=== PATIENT | female | born 1985 | race Caucasian/White ===

== ENCOUNTER → 2019-10-29 | Outpatient (CLI) | payer BC ==
[~2019-10-29] MED LIST: IBU600 MG PO; PERCOCET 325 MG1 TA2 PO; PRENATAL; PROAIR HFA0.09 MG/AC IH; ZYRTEC 10MG10 MG PO
== END ==
LOC: DIA.ED 11:00
DX: O24.419 Gestational diabetes mellitus in pregnancy, unspecified control (principal)
CPT/HCPCS: G0108

== ENCOUNTER → 2019-11-04 | Outpatient (CLI) | payer BC | LOC: DIA.ED 07:50 | DX: O24.419 Gestational diabetes mellitus in pregnancy, unspecified control (principal) | CPT/HCPCS: G0108 ==

== ENCOUNTER → 2019-12-02 | Outpatient (CLI) | payer BC | LOC: DIA.ED 11:00 | DX: O24.419 Gestational diabetes mellitus in pregnancy, unspecified control (principal) | CPT/HCPCS: G0108 ==

== ENCOUNTER 2019-12-18 07:25 | Inpatient (IN) | payer BC, MEDICAID ==
[2019-12-18] VITALS (58 sets, daily range): BP systolic 95–145; BP diastolic 48–90; PULSE 62–118; TEMP 97.7–98.6
[~2019-12-18] VITALS: Ht 149.9 cm; Wt 70.5 kg
--- NOTE | 2019-12-18 07:30 | NUR ---
PATIENT HERE TO LR 2 FOR INDUCTION. PATIENT CHANGED INTO GOWN, ON EFM, VITALS OBTAINED. PATIENT HERE WITH JOVON. PATIENT DENIES CONTRACTIONS, LEAKING OF FLUID OR BLEEDING. IV STARTED, ADMISSION COMPLETE, CONSENTS SIGNED. PATIENT HAS NOT HAD LMP SINCE 2018. SVE /-3.
[2019-12-18] MEDS ORDERED: ZYRTEC 10MG10 MG PO (07:50)
[2019-12-18] MEDS ORDERED: PROAIR HFA0.09 MG/AC IH (07:50)
[2019-12-18] MEDS ORDERED: PRENATAL (07:50)
--- NOTE | 2019-12-18 08:00 | NUR ---
PATIENTS FAST BLOOD GLUCOSE THIS MORNING AROUND 0600 WAS 106
[2019-12-18 08:52] LABS: BASO % 0.3 % (0.0-2.0); EOS # 0.1 (0.0-0.7); EOS % 1.6 % (0-4.0); GRAN # 4.4 (1.4-6.5); GRAN % 62.4 % (42.2-75.2); HEMATOCRIT 41.1 % (37.0-47.0); HEMOGLOBIN 13.7 g/dl (12.5-16.0); LYMPH # 1.6 (1.2-3.4); LYMPH % 23.2 % (20.0-51.0); MEAN CELL VOLUME 82 fl (80.0-100.0); MEAN CORPUSCULAR HEMOGLOBIN 28 pg (27.0-31.0); MEAN CORPUSCULAR HGB CONC 33 g/dl (33.0-37.0); MEAN PLATELET VOLUME 11.8 fl (7.4-10.4); MONO # 0.8 (0.1-0.6); MONO % 11.9 % (1.7-9.3); PLATELET COUNT 164 K/mm3 (130-400); RED BLOOD COUNT 4.99 M/mm3 (4.10-5.30); REDCELL DISTRIBUTION WIDTH-CV 13.7 % (11.5-14.5)
--- NOTE | 2019-12-18 14:50 | NUR ---
IUPC PLACED BY DR BROOKS
--- NOTE | 2019-12-18 17:37 | NUR ---
[id number]- LATE DELELERATIONS. PATIENT WL, WR, LL, RL. WITH CONTRACTIONS.PATIENT SF THEN WL, THEN WR. IV BOLUS GIVEN. 164 PIT [address] BROOKS NOTIFIED
[2019-12-19 02:36] VITALS: BP 106/62; PULSE 82; TEMP 98.2
[2019-12-19 05:23] VITALS: BP 112/68; PULSE 72; TEMP 98.4
[2019-12-19 07:22] LABS: HEMOGLOBIN 10.9 g/dl (12.5-16.0)
[2019-12-19 08:45] VITALS: BP 107/67; PULSE 93; TEMP 98.4
--- NOTE | 2019-12-19 12:00 | NUR ---
Ambulates to the bathroom and back. Request pain medication. Ibuprofen 600 mg, percocet 5/325 mg two given per request and as ordered.
[2019-12-19 16:15] VITALS: BP 99/53; PULSE 79; TEMP 98
[2019-12-19 20:00] VITALS: BP 118/74; PULSE 97; TEMP 98
[2019-12-20 07:30] VITALS: BP 122/69; PULSE 80; TEMP 98
[2019-12-20] MEDS ORDERED: PERCOCET 325 MG1 TA2 PO (09:57)
[2019-12-20] MEDS ORDERED: IBU600 MG PO (09:57)
== END 2019-12-20 12:20 | disposition home or self-care (01) | DRG 788 ==
LOC: LDR 07:25 → OB 12:52
PROVIDERS: ADMIT Obstetrics & Gynecology
PROC: 10D00Z1 Extraction of Products of Conception, Low, Open Approach (ICD-10-PCS; principal; 2019-12-18)
DX: O24.420 Gestational diabetes mellitus in childbirth, diet controlled (principal); O69.81X0 Labor and delivery complicated by cord around neck, without compression, not applicable or unspecified; Z3A.39 39 weeks gestation of pregnancy; Z37.0 Single live birth; O76 Abnormality in fetal heart rate and rhythm complicating labor and delivery
CPT/HCPCS: J0690; J1885; J2370; J2400; J2405; J2590; J2795; J3010; J7120

== ENCOUNTER → 2021-02-22 | Outpatient (CLI) | payer BC, MEDICAID ==
[~2021-02-22] MED LIST changes: +IBU800 M1 PO
== END ==
LOC: ZCOL.LAB 06:48
DX: Z20.822 Contact with and (suspected) exposure to COVID-19 (principal)

== ENCOUNTER 2021-02-27 05:59 | Inpatient (IN) | payer BC, MEDICAID ==
[~2021-02-27] VITALS: Ht 149.9 cm; Wt 70.9 kg
[2021-02-27] VITALS (17 sets, daily range): BP systolic 104–145; BP diastolic 45–86; PULSE 50–97; TEMP 98–98.3
[~2021-02-27 05:59] MED LIST changes: -IBU800 M1 PO
--- NOTE | 2021-02-27 06:10 | NUR ---
Patient ambulates to 209, changed into gown. 0620: This RN assumes care and FHR/TOCO placed and explained. Plan of care discussed and questions answered. Patient here for repeat scheduled csection. 0640: IV placed in left upper arm, blood obtained, LR infusing. Consents signed/assessment completed. Blood sugar obtained-121
[2021-02-27 07:03] LABS: BASO % 0.3 % (0.0-2.0); EOS # 0.1 (0.0-0.7); EOS % 0.7 % (0-4.0); GRAN # 4.7 (1.4-6.5); GRAN % 65.4 % (42.2-75.2); HEMATOCRIT 39.3 % (37.0-47.0); HEMOGLOBIN 13.1 g/dl (12.5-16.0); LYMPH # 1.7 (1.2-3.4); LYMPH % 23.2 % (20.0-51.0); MEAN CELL VOLUME 80 fl (80.0-100.0); MEAN CORPUSCULAR HEMOGLOBIN 27 pg (27.0-31.0); MEAN CORPUSCULAR HGB CONC 33 g/dl (33.0-37.0); MONO # 0.7 (0.1-0.6); MONO % 9.6 % (1.7-9.3); PLATELET COUNT 153 K/mm3 (130-400); RED BLOOD COUNT 4.92 M/mm3 (4.10-5.30); REDCELL DISTRIBUTION WIDTH-CV 13.6 % (11.5-14.5)
--- NOTE | 2021-02-27 14:40 | NUR ---
Patient ambulatory to LR3, changed into gown, FHR/TOCO montiors placed and explained. Patient states she has been having contractions since about 0300. Denies any leaking of fluid/vaginal bleeding/decreased movement. Plan of care discussed. E 2-3/-2 Assessment completed and questions answered.
--- NOTE | 2021-02-27 21:30 | NUR ---
Pt able to lift and hold each leg off of bed for 5 seconds and is ready to get out of bed. SCDs off. Pt positioned to sitting on edge of bed. Denies feeling dizzy or light headed. Pt able to ambulate to bathroom with stand by assistance. Rashid catheter removed, pt tolerated well. Pericare explained and provided. Clean gown on. Mesh panties and peripad applied. Pt educated on need of 3 measured voids.
[2021-02-28 00:15] VITALS: BP 137/62; PULSE 56; TEMP 97.6
[2021-02-28 04:25] VITALS: BP 117/61; PULSE 62; TEMP 98.1
--- NOTE | 2021-02-28 06:45 | NUR ---
Rests in bed, alert. Denies any pain or discomfort at this time.
[2021-02-28 07:00] VITALS: BP 110/63; PULSE 58; TEMP 97.8
[2021-02-28 07:14] LABS: HEMOGLOBIN 11.9 g/dl (12.5-16.0)
[2021-02-28 07:15] LABS: HEMATOCRIT 36.5 % (37.0-47.0)
[2021-02-28] MEDS ORDERED: IBU800 M1 PO (08:08)
[2021-02-28] MEDS ORDERED: PERCOCET 325 MG1 TA2 PO (08:09)
--- NOTE | 2021-02-28 09:20 | NUR ---
Percocet 5/325 mg one given per request and as ordered.
--- NOTE | 2021-02-28 10:30 | NUR ---
Initial visit; Patient thanked [employer] Attendant for looking in on her and offering prayer for her daughter who has been transferred to [facility]. [employer] Attendant prayed that infant continue to make progress and parents be given strength.
[2021-02-28 17:00] VITALS: BP 121/73; PULSE 64; TEMP 97.8
--- NOTE | 2021-02-28 17:09 | NUR ---
Rests in bed, alert. Ibuprofen 800 mg given as ordered.
[2021-02-28 19:30] VITALS: BP 142/73; PULSE 71; TEMP 97.5
[2021-03-01 07:40] VITALS: BP 120/86; PULSE 78; TEMP 97.9
== END 2021-03-01 09:30 | disposition home or self-care (01) | DRG 787 ==
LOC: OB 05:59
PROVIDERS: ADMIT Obstetrics & Gynecology
PROC: 10D00Z1 Extraction of Products of Conception, Low, Open Approach (ICD-10-PCS; principal; 2021-02-27)
DX: O34.211 Maternal care for low transverse scar from previous cesarean delivery (principal); O98.82 Other maternal infectious and parasitic diseases complicating childbirth; O24.420 Gestational diabetes mellitus in childbirth, diet controlled; O99.52 Diseases of the respiratory system complicating childbirth; J45.909 Unspecified asthma, uncomplicated; O69.81X0 Labor and delivery complicated by cord around neck, without compression, not applicable or unspecified; B37.3 Candidiasis of vulva and vagina; Z3A.39 39 weeks gestation of pregnancy; Z37.0 Single live birth
CPT/HCPCS: J0171; J0690; J1100; J1885; J2370; J2405; J2590; J7120